=== PATIENT | female | born 1975 ===

== ENCOUNTER 2018-05-25 08:33 | Outpatient (CLI) | payer OTHER | END 2018-05-25 08:35 | disposition home or self-care (01) | LOC: SONOGRAMA 08:33 | DX: E04.1 Nontoxic single thyroid nodule (principal) ==

== ENCOUNTER 2020-02-07 06:42 | Day surgery (SDC) | payer OTHER ==
[2020-02-07] MEDS ORDERED: PEPCID20 MG PO (10:05)
== END 2020-02-07 11:50 | disposition home or self-care (01) ==
LOC: AMB-ENDOS 06:42
PROVIDERS: ATTEND Surgery
DX: K29.50 Unspecified chronic gastritis without bleeding (principal); K44.9 Diaphragmatic hernia without obstruction or gangrene; Z20.828 Contact with and (suspected) exposure to other viral communicable diseases

== ENCOUNTER 2020-06-06 17:39 | Emergency (ER) | payer OTHER ==
[~2020-06-06] VITALS: Ht 165.1 cm; Wt 111.1 kg
[~2020-06-06 17:39] MED LIST: PEPCID20 MG PO
== END 2020-06-06 21:11 | disposition home or self-care (01) ==
LOC: ER 17:39
DX: O20.0 Threatened abortion (principal)

== ENCOUNTER → 2020-06-09 09:49 | Outpatient (CLI) | payer OTHER | END | disposition home or self-care (01) | LOC: LAB 09:49 | PROVIDERS: ATTEND Emergency Medicine | DX: O20.0 Threatened abortion (principal) ==

== ENCOUNTER → 2020-06-09 | Outpatient (CLI) | payer OTHER | END | disposition home or self-care (01) | LOC: SONOGRAMA 10:51 | PROVIDERS: ATTEND Emergency Medicine | DX: N94.89 Other specified conditions associated with female genital organs and menstrual cycle (principal); O20.0 Threatened abortion ==